=== PATIENT | male | born 1955 | race Caucasian/White ===

== ENCOUNTER 2018-10-18 13:45 | Inpatient (IN) ==
[2018-10-18] MEDS ORDERED: ZOFRAN IV ONE ×2 (14:50→17:11)
[2018-10-18] MEDS ORDERED: NS 1,000 ML IV ONE ×2 (14:50→17:55)
[2018-10-18 15:13] LABS: BASO# 0.02 X1000 (0.0-0.2); BASO% 0.2 % (0.0-0.8); EOS# 0.08 X1000 (0.0-0.7); EOS% 0.9 % (0.0-10.0); HEMATOCRIT 44.7 % (42.0-52.0); HEMOGLOBIN 15.9 g/dL (14.0-18.0); IMM GRAN# 0.02 X1000 (0.0-0.04); IMM GRAN% 0.2 % (0.0-0.5); LYMPH# 1.52 X1000 (1.2-3.4); MCH 29.1 PG (27-31); MCHC 35.6 g/dL (33-37); MCV 81.7 FL (81-99); MONO% 5.6 % (1.7-9.3); NEUT# 6.79 X1000 (1.4-6.5); NEUT% 76.1 % (42.2-75.2); PLT 319 X1000 (130-400); RBC 5.47 XMIL (4.7-6.1); WBC 8.93 X1000 (4.8-10.8)
[2018-10-18 15:32] LABS: AGAP 14; ALB/GLOB RATIO 1.5; ALBUMIN 4.6 g/dL (3.5-5.0); ALKALINE PHOSPHATASE 96 U/L (32-122); BUN 12 mg/dL (8-22); CALCIUM 9.8 mg/dL (8.8-10.2); CHLORIDE 101 mmol/L (98-107); CK PROFILE 185 U/L (24-204); COSMO 285; CREATININE 1.1 mg/dL (0.7-1.2); ESTIMATED GFR > 60; GLUCOSE 178 mg/dL (70-104); GOT 28 U/L (10-34); GPT 41 U/L (10-44); POTASSIUM 4.1 mmol/L (3.5-5.1); SODIUM 141 mmol/L (136-145); TCO2 26 mmol/L (25-35); TOTAL BILIRUBIN 0.62 mg/dL (0.20-1.00); TOTAL PROTEIN 7.7 g/dL (6.3-8.3)
--- NOTE | 2018-10-18 16:47 | PROVIDER DOCUMENTATION ---
This chart was entered by Kristin Benitez Scribe, acting as scribe for Trina Sinclair MD. HPI-General Adult - General Stated Complaint: HEAT STROKE Time Seen by Provider: 10/18/18 14:11 Source: EMS Allergies/Adverse Reactions: Patient Allergies Allergy/AdvReac Type Severity Reaction Status Date / Time No Known Allergies Allergy Verified 05/08/14 11:52 Home Medications: Home Medication List Medication Instructions Recorded Confirmed Last Taken Type Losartan [Cozaar] 50 mg PO DAILY 05/08/14 10/18/18 10/17/18 History Sertraline [Zoloft] 25 - 50 mg PO DAILY 05/08/14 10/18/18 10/18/18 History Meclizine HCl [Antivert] 25 mg PO Q8H #90 tab 10/20/18 Unknown Rx - History of Present Illness -Gen Adult Nature of Presenting Problems: Patient is a 62 year old male who presents to the ED via EMS with nausea, vomiting and dizziness. EMS states patient reported symptoms started around 1100. EMS states patient had been working outside today. Location of Pain/Injury: reports: none Pain Radiation: reports: no radiation Quality of Pain: reports: none Severity: reports: mild Onset/Duration: reports: gradual Timing: reports: still present Context/Activities at Onset: reports: light activity Associated Symptoms: reports: dizziness, nausea, vomiting Similar Symptoms Previously?: No Recently seen or treated by another doctor?: No Review of Systems - Adult - REVIEW OF SYSTEMS - ADULT ROS:: limited per condition Constitutional: reports: no symptoms reported Eyes: reports: no symptoms reported Ears, Nose, Mouth & Throat: reports: no symptoms reported Cardiovascular: reports: no symptoms reported Respiratory: reports: no symptoms reported Gastrointestinal: reports: see HPI, nausea, vomiting. denies: abdominal pain, diarrhea Genitourinary: reports: no symptoms reported Musculoskeletal: reports: no symptoms reported Integumentary: reports: no symptoms reported Neurological: reports: see HPI, dizziness/vertigo (dizziness). denies: headache/migraines, syncope Psychiatric: reports: no symptoms reported Endocrine: reports: no symptoms reported Hematologic/Lymphatic: reports: no symptoms reported Allergic/Immunologic: reports: no symptoms reported All Other Systems: Reviewed and Negative Past History - Adult - PAST MEDICAL HISTORY-ADULT Review of Records: reports: Old Records Reviewed, Nursing Assessment Review, Medications Reviewed, Social history reviewed & non-contributory. Major Childhood Illnesses: reports: denies history Cardiovascular: reports: HTN Respiratory: reports: denies history Gastrointestinal: reports: denies history Obstetrical/Gynecological: reports: denies history Genitourinary: reports: denies history Musculoskeletal: reports: denies history Neurological: reports: denies history Endocrine/Immune: reports: denies history Other Conditions: reports: denies history - PRIOR SURGERIES/PROCEDURES Surgical/Procedure History: reports: hernia repair, back/neck - IMMUNIZATION STATUS Childhood Immunizations: See Nurse Assessment Flu Vaccine: See Nurse Assessment - FAMILY HISTORY Family History: reviewed, not pertinent - SOCIAL HISTORY Smoking: denies Substance Use: denies Physical Exam-General - PHYSICAL EXAM-ADULT Initial Vital Signs Reviewed: Yes - CONSTITUTIONAL General Appearance: alert, no apparent distress. negative: lethargic - EYES Eyes: PERRL/EOMI, pink conjunctivae. negative: sunken eyes - HEAD, EARS, NOSE, MOUTH & THROAT HENMT: normocephalic/atraumatic, moist mucous membranes. negative: angioedema - RESPIRATORY Respiratory: chest non-tender, lungs clear, normal breath sounds. negative: crackles, rhonchi - CARDIOVASCULAR Cardiovascular: normal peripheral pulses, regular rate, rhythm. negative: tachycardia - GASTROINTESTINAL (ABDOMEN) Abdominal Exam: normal bowel sounds, soft, tenderness (epigastric). negative: guarding - MUSCULOSKELETAL Extremity: non-tender, normal inspection. negative: deformity, erythema - SKIN Integumentary: normal color, normal turgor, warm/dry. negative: cyanosis, ecchymosis, jaundice - NEUROLOGIC Neurologic: grossly normal. negative: aphasia, facial droop - PSYCHIATRIC Psych/Mental Status: normal mood/affect, oriented x 3. negative: anxious Progress - PLAN OF CARE/RESULTS Progress/Plan/Lab Results: DR Hedrick evaluated the pt and wants to see how meclizine helps, if not better he will admit the pt overnight. d/w Dr Rowley Result Diagrams: 10/20/18 05:21 10/20/18 05:21 - REASSESSMENT Reassessment #1 Time Reassessed: 16:10 Status: improving (WILL GIVE ANOTHER BOLUS OF NS. WILL REEVALUATE AFTER BOLUS.) Reassessment #2 Time Reassessed: 18:00 Status: worsening (pt was getting ready to get discharged, started having severe dizziness. CT head was ordered.) - CONSULTS/PCP/HOSPITALIST Notification #1 *Consult/PCP/Hospitalist*: d/w dr Hedrick Time Discussed: 19:00 Consult Disposition: Will see in ED (Dr Hedrick to examine the pt in ED and decide about admission.) - CHANGE OF SHIFT REPORT (ED Provider) 1 Report Given and Care Transferred to:: dr Rowley Time of Transfer: 19:00 Items Pending: Physician Consult/Arrival Departure - Departure Date of Disposition Decision: 10/18/18 Time of Disposition Decision: 21:35 DIAGNOSIS: Heat exhaustion, unspecified, BPPV (benign paroxysmal positional vertigo), Dizziness Disposition: ADMITTED INPATIENT 09 Certified Medical Emergency: Emergent Condition: Good - Critical Care Note This patient required my direct & personal management of CC.: No Attestation - Physician/ JOSE Attestation Patient care was provided by Advanced Practice Provider:: No The physician spent face to face time with patient:: Yes Advanced Practice Provider documentation review:: Supervising physician onsite and consulted in the evaluation and care of this patient. The physician did have a face to face encounter with the patient. This chart was documented by the indicated scribe, (Kristin Benitez Scribe) and accurately reflects the services I performed and decisions made by me, Trina Sinclair MD, as attested by the provider's signature.
[2018-10-18 16:55] LABS: URINE SOURCE CLEAN CATCH
[2018-10-18 16:57] LABS: BILIRUBIN URINE NEGATIVE (NEGATIVE); BLOOD URINE TRACE (NEGATIVE); COLOR YELLOW; GLUCOSE URINE NEGATIVE (NEGATIVE); KETONE URINE 10 mg/dL (NEGATIVE); LEUKOCYTES URINE NEGATIVE (NEGATIVE); NITRITE URINE NEGATIVE (NEGATIVE); PROTEIN URINE 30 mg/dL (NEGATIVE); SP GRAVITY URINE 1.027; TURBIDITY URINE CLEAR (CLEAR); UR EPITHELIAL CELLS <10 /HPF (<10); URINE BACTERIA NEGATIVE /HPF; URINE RBC <10 /HPF (<10); URINE WBC <10 /HPF (<10); UROBILINOGEN URINE NORMAL (NORMAL)
--- NOTE | 2018-10-18 17:41 | Diag Imaging Result Doc PS360 ---
EXAM: CT HEAD W/O CONTRAST 10/18/2018 HISTORY: DIZZINESS TECHNIQUE: This exam was performed using automated exposure control, adjustment of mA or kV according to patient size, and/or use of iterative reconstruction technique. COMMENT: There is generalized cerebral atrophy. There are no previous studies available for comparison. There is no evidence of mass effect, shift of midline structures, hydrocephalus or bleed. There is no evidence of acute paranasal sinus disease. The calvarium appears to be intact. IMPRESSION: No evidence of acute intracranial disease. Electronically signed by Turner Renee 10/18/2018 5:39 PM
[2018-10-18] MEDS ORDERED: ANTIVERT PO ONE (19:24)
[2018-10-18] MEDS ORDERED: PHENERGAN PR PRN (20:45)
[2018-10-18] MEDS: ZOFRAN IV PRN (21:24)
[2018-10-18] MEDS: NS 1,000 ML IV SCH (21:25)
--- NOTE | 2018-10-18 21:42 | HISTORY AND PHYSICAL ---
CHIEF COMPLAINT: Vertigo and vomiting. HISTORY OF PRESENT ILLNESS: Patient is a 62-year-old male with history of hypertension and morbid obesity. He presents with sudden onset of nausea, vomiting and vertigo in the early afternoon. He had been working outside intermittently but states he was not out for any prolonged length of time and his total time outside was only about 2 hours. States that he was drinking water aggressively to try to keep dehydrated. He was finishing up when he had sudden onset of vertigo with the room spinning around him, nausea and vomiting. This was made worse with any movement. When it did not resolve spontaneously he had his family bring him to the ER. He denies fever, chills, cough, chest pain, dysuria. Denies weakness, numbness, paresthesias. No loss of consciousness. He was treated symptomatically in the ED with fluids and nausea medications but continued to vomit any time he tried to get up despite Zofran. Was later given meclizine but again he continued to have intractable nausea and vomiting with any significant movement so he was admitted for further supportive care. REVIEW OF SYSTEMS: Twelve point review of systems negative except as per HPI. ALLERGIES: No known drug allergies. PAST MEDICAL HISTORY: Hypertension, morbid obesity. PAST SURGICAL HISTORY: Back surgery x3, tonsillectomy. SOCIAL HISTORY: No tobacco use. Drinks 1 to 2 beers per week. No illicit drug use. FAMILY HISTORY: Patient unaware of his family history because he was adopted. LABS: WBC 8.9, hemoglobin 15.9, hematocrit 44.7, platelets 319,000. Sodium 141, potassium 4.1, bicarb 26, BUN 12, creatinine 1.1, glucose 178, total bilirubin 0.6, AST 28, ALT 41, alkaline phosphatase 96, CK 185, troponin negative. Urinalysis is ketones of 10, trace blood. IMAGING: Head CT unremarkable. VITALS: T-max 98.7 degrees, pulse 62, respirations 18, blood pressure 165/103, O2 saturation 100% on room air. PHYSICAL EXAMINATION: GENERAL: No acute distress initially, later was actively vomiting bilious material. Vitals as above. HEENT: Normocephalic, atraumatic. Slightly dry membranes. Left beating nystagmus noted on eye exam . CARDIAC: Regular rate and rhythm. No murmurs noted. PULMONARY: Clear to auscultation bilaterally. No wheezing, rales, or rhonchi. ABDOMEN: Soft, nontender, nondistended. Bowel sounds positive. EXTREMITIES: Peripheral pulses intact. No clubbing, cyanosis, or edema. NEUROLOGIC: Left beating nystagmus noted as above otherwise cranial nerves are intact. Strength 5/5 throughout. Reflexes 2+. no ataxia, finger nose finger intact bilaterally. No focal deficits identified. PSYCHIATRIC: Normal mood and affect. Awake, alert, oriented x3. SKIN: No new rashes or lesions identified. ASSESSMENT AND PLAN: 1. Intractable nausea and vomiting, likely benign paroxysmal positional vertigo. Patient with sudden onset of vertigo and nausea worsened by movement. Left beating nystagmus on exam. Strongly suspect benign paroxysmal positional vertigo but despite Zofran and meclizine patient continues to have pretty significant vomiting anytime tries to get up out of the bed. Admitting patient for IV fluids and more aggressive nausea control. CT head unremarkable and no focal deficits on exam and No ataxia to suggest a posterior circulation infarct.but if vomiting continues then will consider MRI of the head. 2. Hypertension. Patient noncompliant with blood pressure medications. Blood pressure moderately elevated here but given nausea and vomiting will hold his home medication for now. 3. Hyperglycemia. No known history of diabetes and patient did eat and drink lunch prior to the onset of his vomiting so hyperglycemia may be postprandial. We will check an A1c and check sugars. No evidence of diabetic ketoacidosis on labs. [facility]
[2018-10-19] MEDS: ZOFRAN IV PRN (05:29)
[2018-10-19] MEDS: NS 1,000 ML IV SCH ×2 (05:30→10:51)
[2018-10-19 05:34] LABS: BASO# 0.01 X1000 (0.0-0.2); BASO% 0.1 % (0.0-0.8); EOS# 0.02 X1000 (0.0-0.7); EOS% 0.3 % (0.0-10.0); HEMATOCRIT 39.7 % (42.0-52.0); IMM GRAN# 0.02 X1000 (0.0-0.04); IMM GRAN% 0.3 % (0.0-0.5); LYMPH# 1.83 X1000 (1.2-3.4); LYMPH% 23.6 % (20.5-51.1); MCH 29.3 PG (27-31); MCHC 35.3 g/dL (33-37); MCV 83.1 FL (81-99); MONO# 0.58 X1000 (0.11-0.59); MONO% 7.5 % (1.7-9.3); MPV 9.7 FL (7.4-10.4); NEUT# 5.29 X1000 (1.4-6.5); NEUT% 68.2 % (42.2-75.2); PLT 282 X1000 (130-400); RBC 4.78 XMIL (4.7-6.1); RDW 14.1 % (11.5-14.5); WBC 7.75 X1000 (4.8-10.8)
[2018-10-19 05:44] LABS: HEMOGLOBIN A1C 5.3 % (4.8-6.0)
[2018-10-19 05:53] LABS: AGAP 8; BUN 11 mg/dL (8-22); CALCIUM 8.9 mg/dL (8.8-10.2); CHLORIDE 106 mmol/L (98-107); COSMO 283; CREATININE 0.9 mg/dL (0.7-1.2); ESTIMATED GFR > 60; GLUCOSE 112 mg/dL (70-104); POTASSIUM 4.3 mmol/L (3.5-5.1); SODIUM 142 mmol/L (136-145); TCO2 28 mmol/L (25-35)
[2018-10-19] MEDS: ZOLOFT PO SCH (08:42)
[2018-10-19] MEDS: ANTIVERT PO SCH ×3 (08:42→21:58)
--- NOTE | 2018-10-19 14:18 | PROGRESS NOTE ---
DATE: 10/19/2018 SUBJECTIVE: The patient is resting in bed. He states that when he does not move, he does not feel dizzy. OBJECTIVE: Vital Signs: Temperature 98.4 degrees, blood pressure 132/68, heart rate 65, respirations 18, O2 saturation is 99% on room air. General: This is a morbidly obese male, lying in bed in no acute distress. Heart: S1, S2. Normal. Lungs: Clear to auscultation bilaterally. Abdomen: Positive bowel sounds. Soft, obese, nontender, nondistended. Extremities: No edema. No cyanosis. No calf tenderness. Neurologic: The patient is alert and oriented x4. LABORATORY DATA: Reviewed. ASSESSMENT AND PLAN: 1. Vertigo. The patient is currently on fluids and meclizine. Hopefully this will resolve. If not, this may represent an inner ear issue. We will continue to monitor the patient closely for improvement. 2. Morbid obesity. The patient has been counseled about weight loss and proper diet. 3. Situational depression. Continue on Zoloft. cc: Verenice Spaulding MD MTDD
--- NOTE | 2018-10-19 15:33 | CONSULTATION ---
DATE OF CONSULTATION: 10/19/2018 REASON FOR CONSULTATION: Vertigo. HISTORY OF PRESENT ILLNESS: This is a 62-year-old, right-handed male with history of hypertension and morbid obesity. He was admitted yesterday with vertiginous symptoms. History is from the patient. He was feeling well the day prior, and I believe he said he was at his son's house doing a little bit of work in and out of the house. He did not feel as if he was overheated. He left, felt a little bit dizzy, and then stopped in at a convenience store. His dizziness gradually worsened and then seemed to more abruptly worsen. He was able to catch himself on a display in the store. After a minute, he was able to walk. Ultimately, he went over to the sink and then began vomiting in the nearby trash can. He was dizzy and the room was spinning. He was having difficulty standing. He did not feel as though he was listing to any particular side. He denied diplopia, dysarthria, or difficulty with secretions. No headache at the time. No focal weakness or numbness. He did not lose consciousness. He was able to speak and understood what was spoken to him. EMS was summoned, and he was brought to the emergency department. A head CT did not show acute findings. Ultimately, he realized that if he remained more still that the intensity of the symptoms would improve though they have never disappeared entirely. They are certainly worse when he moves in any direction. Today, he is much improved though not at baseline. He still feels as though he is having some vertigo with movement and that the symptoms are improved when he is still. He has not been completely symptom-free. He developed mild holocephalic headache this morning though he had not eaten in a while, and now that he has eaten he feels that his headache has improved. He denies prior history of stroke or other major neurologic event. He has not had vertiginous symptoms in the past. He has been treated for heat exhaustion in the past. With that, he says he just passed out. PAST MEDICAL/SURGICAL HISTORY: Includes hypertension, morbid obesity. He had a retinal detachment in the left eye with some repair. He has had, I believe, 4 back surgeries with pins placed. Anxiety. Obstructive sleep apnea diagnosed by sleep study per patient. He has not used CPAP in years and does not tolerate. SOCIAL HISTORY: No tobacco or illicits. He drinks alcohol rarely. He is retired. He is . FAMILY HISTORY: Unknown as he is adopted. ALLERGIES: No known drug allergies listed. MEDICATIONS: Include Zoloft and an antihypertensive. PHYSICAL EXAMINATION: Vital Signs: Afebrile. Blood pressure 168/97 on admission. Currently, 132/68. Pulse 60s. Respirations 18. At 99% on room air. General: Mr. Maldonado is sitting up in bed, eating lunch. He is awake, alert, and oriented. No language disturbance. Attentive. No dysarthria. Follows simple and complex commands. Left and right digit distinction preserved. Pupils equal, round, and reactive to light. He has some right beating nystagmus. He denies diplopia in all cassidy. Visual cassidy intact to direct confrontational testing. Face symmetric with equal activation. Facial sensation reported intact. Tongue is midline. Palate is difficult to visualize in its entirety. Shoulder shrug is full. No drift. Tone is symmetric in the limbs. Strength is preserved in the arms and legs. [id number], [id number] and rapid alternating movements preserved. Sensation to light touch intact. There is no clonus. Plantar response is downgoing. I did not test his gait. DIAGNOSTICS: Noncontrasted head CT personally reviewed. No acute findings. Normal white count, sodium, BUN, creatinine. A1c 5.3. Normal calcium, AST, and ALT. ASSESSMENT AND PLAN: Probable positional vertigo. He has had significant clinical improvement though still not at baseline and has not had complete resolution of symptoms. I agree with symptomatic management as you are doing. Hopefully, he will continue to see improvement. Given his continued symptoms and risk factors, I would consider a non-contrasted MRI of the brain just to be certain we are not missing an ischemic event. I counseled him on his stroke risk factors including hypertension and obesity. He also has untreated sleep apnea. He would benefit from PT. Thank you for the consultation. cc: Krystina Bobby MD [facility]
[2018-10-19] MEDS ORDERED: LOVENOX SUBQ SCH (16:00)
[2018-10-19] MEDS ORDERED: COZAAR PO SCH ×2 (21:00)
[2018-10-20 06:04] LABS: HEMATOCRIT 38.7 % (42.0-52.0); HEMOGLOBIN 13.3 g/dL (14.0-18.0); MCH 29.4 PG (27-31); MCHC 34.4 g/dL (33-37); MCV 85.6 FL (81-99); MPV 9.9 FL (7.4-10.4); RBC 4.52 XMIL (4.7-6.1); RDW 14.2 % (11.5-14.5); WBC 6.07 X1000 (4.8-10.8)
[2018-10-20 06:49] LABS: AGAP 10; BUN 13 mg/dL (8-22); CALCIUM 7.6 mg/dL (8.8-10.2); CHLORIDE 106 mmol/L (98-107); COSMO 287; CREATININE 0.9 mg/dL (0.7-1.2); ESTIMATED GFR > 60; GLUCOSE 100 mg/dL (70-104); POTASSIUM 4.2 mmol/L (3.5-5.1); SODIUM 144 mmol/L (136-145); TCO2 28 mmol/L (25-35)
--- NOTE | 2018-10-20 09:40 | Diag Imaging Result Doc PS360 ---
MRI BRAIN W/O CONTRAST - 10/19/2018 INDICATION: stroke COMPARISON: 10/18/2018 FINDINGS: There is no area of restricted diffusion. There is advanced cerebral atrophy. No area of abnormal signal. No intracranial mass or hemorrhage. Midline structures including optic chiasm and pituitary are normal. IMPRESSION: Advanced cerebral atrophy. No acute abnormality. Electronically signed by Chad Galeano 10/20/2018 9:38 AM
[2018-10-20] MEDS: ANTIVERT PO SCH (10:00)
[2018-10-20] MEDS: ZOLOFT PO SCH (10:00)
[2018-10-20 12:32] VITALS: BP 145/90
--- NOTE | 2018-10-20 16:10 | PROGRESS NOTE ---
DATE: 10/20/2018 ROOM NUMBER: [id number]. Mr. Maldonado reports dizziness has not resolved but continues to be much improved compared to what he was experiencing on admission. He believes he feels well enough to be discharged and take care of himself safely at home. I advised him to be careful with activities and to try to avoid any situation in which dizziness might result in risk of injury. Brain MRI shows generalized atrophy, probably greater than would have been expected for his age. I encouraged him to be aggressive with management of his blood pressure and other cerebrovascular risk factors. IMPRESSION: Probable positional vertigo, no evidence of acute neurologic event. I agree with plans for discharge. Neurology will be glad to see him again if needed. cc: MD YAMILET Stephenson III
--- NOTE | 2018-10-21 04:32 | DISCHARGE SUMMARY ---
ADMISSION DATE: 10/18/2018 DISCHARGE DATE: 10/20/2018 FINAL DISCHARGE DIAGNOSES: 1. Vertigo. 2. Morbid obesity. 3. Situational depression. 4. Hypertension CONSULTATIONS: Neurology consultation with Dr. Bobby. IMAGIN. Head CT performed on 10/18/2018 that revealed no evidence of acute intracranial disease. 2. Brain MRI which revealed advanced cerebral atrophy. HOSPITAL COURSE: Mr. Maldonado is a 62-year-old male with a history of morbid obesity and hypertension who presented with a chief complaint of vertigo as well as nausea and vomiting. The patient was admitted to the hospitalist service. A head CT was done in the ER that was negative. The patient was started on IV fluids, antiemetics and meclizine. Over the course of the hospitalization, the patient's balance improved and the vertigo improved as well. The patient was seen by Neurology as well. An MRI of the brain was done that revealed cerebral atrophy, but no acute finding to explain the patient's symptoms. At this time, the patient states that he is very much improved and able to ambulate without any difficulty. The patient is currently medically stable for discharge home. DISCHARGE MEDICATIONS: 1. Meclizine 25 mg oral every 8 hours p.r.n. for dizziness. 2. Zoloft 25 mg oral daily. 3. Cozaar 50 mg p.o. daily. DISCHARGE DIET: Low-sodium low-cholesterol diet. ACTIVITY: As tolerated. FOLLOWUP INSTRUCTIONS: The patient will need to follow up with Dr. Zapata in 1 week. cc: MD Anthony Cordero MD [facility]
== END 2018-10-20 15:32 | disposition home or self-care (01) | DRG 149 ==
LOC: SUPCPDRO → ED 13:45 → SUATTDRO 20:48 → 4N 20:48
PROVIDERS: ATTEND Internal Medicine